=== PATIENT | female | born 1975 | race Caucasian/White ===

== ENCOUNTER → 2018-01-10 16:59 | Outpatient (CLI) | payer BC | END | disposition home or self-care (01) | LOC: D.MAMMO 15:00 | DX: N63.12 Unspecified lump in the right breast, upper inner quadrant (principal) ==

== ENCOUNTER → 2018-01-18 09:07 | Outpatient (CLI) | payer BC | END | disposition home or self-care (01) | LOC: D.US 09:07 | DX: N63.12 Unspecified lump in the right breast, upper inner quadrant (principal) ==

== ENCOUNTER → 2018-03-23 08:31 | Outpatient (CLI) | payer BC | END | disposition home or self-care (01) | LOC: D.US 02-23 10:30 | DX: R92.8 Other abnormal and inconclusive findings on diagnostic imaging of breast (principal) ==

== ENCOUNTER → 2018-09-12 13:15 | Outpatient (CLI) | payer BC | END | disposition home or self-care (01) | LOC: D.US 13:15 | PROVIDERS: ATTEND Nurse Practitioner | DX: N63.12 Unspecified lump in the right breast, upper inner quadrant (principal) ==

== ENCOUNTER → 2018-09-30 08:10 | Outpatient (CLI) | payer BC | END | disposition home or self-care (01) | LOC: D.MRI 08:00 | PROVIDERS: ATTEND Nurse Practitioner | DX: M25.562 Pain in left knee (principal) ==

== ENCOUNTER → 2019-03-31 10:19 | Outpatient (CLI) | payer BC | END | disposition home or self-care (01) | LOC: D.MRI 10:19 | PROVIDERS: ATTEND Nurse Practitioner | DX: M54.16 Radiculopathy, lumbar region (principal) ==

== ENCOUNTER 2019-06-23 13:22 | Emergency (ER) | payer BC ==
[~2019-06-23] VITALS: Ht 172.7 cm; Wt 109.1 kg
[2019-06-23 13:34] VITALS: Ht 172.7 cm; Wt 109.1 kg
[2019-06-23 13:51] LABS: BASOPHILS 0.2 % (0-2); EOSINOPHILS 1.1 % (0-7); HEMOGLOBIN 14.5 g/dL (12-16); IMMATURE GRANULOCYTES 0.2 % (0-5); MCH 29.4 pg (26.0-34.0); MCV 89.1 fL (80.0-100.0); MEAN PLATELET VOLUME 10.9 fL (7.4-10.4); MONOCYTES 6.1 % (2-11); NEUTROPHILS 65.4 % (40-80); PLATELET COUNT 312 10x3/uL (130-400); RBC 4.94 10x6/uL (4.00-5.40); RDW 14.1 % (11.5-14.5); WBC 10.9 10x3/uL (4.8-10.8)
[2019-06-23 14:01] LABS: CALC OSMOLALITY 271 mosm/kg (275-300); CALCIUM 9.3 mg/dL (8.5-10.1); CARBON DIOXIDE 28.1 mmol/L (21.0-32.0); CHLORIDE - SERUM 101 mmol/L (98-107); CREATININE - SERUM 0.8 mg/dL (0.6-1.3); GLUCOSE 107 mg/dL (74-106); POTASSIUM - SERUM 3.5 mmol/L (3.5-5.1); SODIUM 137 mmol/L (136-145); UREA NITROGEN 7 mg/dL (7-18); eGFR NON AFRICAN AMERICAN 83 mL/min (90-120)
[2019-06-23 14:07] LABS: APTT 30.5 SECONDS (22.8-39.4); INR 0.91 (0.85-1.17); PROTIME 12.3 SECONDS (11.6-15.0)
[2019-06-23 14:12] LABS: HCG SERUM NEGATIVE (NEGATIVE)
[2019-06-23 14:17] LABS: ALBUMIN 3.5 g/dL (3.4-5.0); ALKALINE PHOSPHATASE 112 U/L (30-120); ALT (SGPT) 22 U/L (10-68); BILIRUBIN - TOTAL 0.26 mg/dL (0.2-1.3); CKMB 0.1 U/L (0.0-3.6); CREATINE KINASE 41 UL (21-215); PROTEIN - SERUM 7.3 g/dL (6.4-8.2); TROPONIN-I < 0.017 ng/mL (0.000-0.060)
[2019-06-23 14:51] VITALS: BP 125/83
== END 2019-06-23 14:52 | disposition home or self-care (01) ==
LOC: D.ER 13:22
PROVIDERS: Family Medicine
DX: M79.602 Pain in left arm (principal); M25.512 Pain in left shoulder; Z72.0 Tobacco use

== ENCOUNTER 2019-10-20 19:00 | Outpatient (CLI) | payer BC ==
[2019-06-23 13:34] VITALS: BMI 36.5
== END 2019-10-20 23:59 | disposition home or self-care (01) ==
LOC: D.MAMMO 19:00
PROVIDERS: ATTEND Nurse Practitioner
DX: N64.4 Mastodynia (principal)